=== PATIENT | male | born 1930 | race Caucasian/White ===

== ENCOUNTER 2019-01-29 09:25 | Observation (INO) ==
--- NOTE | 2019-01-24 15:08 | Anesthesiology Consultation ---
Date of Service January 24, 2019 Assessment & Plan (1) Encounter for pre-operative examination: Chart Review Chart Review: Pending: Refer to Additional Notes / Consult section (pending preop testing (labs, EKG, CXR)) and Patient seen in Pre Admission Testing Teaching & Discussion Pre-Anesthesia Teaching/Discussion Notes: Instructed NPO after midnight before surgery,except medications with 15 cc of water. Medication instructions provid ed according to the PAT guidelines. History Surgery Operation Date: 01/29/19 11:00 Proposed Procedures p Transurethral Resection Prostate - Shaun Washington MD Height/Weight Height: 5 ft 6.5 in Weight: 70 kg Allergies Allergy/AdvReac Type Severity Reaction Status Date / Time No Known Allergies Allergy Verified 01/23/19 09:07 Medications Home Medications Medication Instructions Recorded Confirmed Last Taken alprazolam [Xanax] 0.25 mg PO DAILY PRN 01/23/19 01/23/19 Unknown amlodipine [Norvasc] 2.5 mg PO QPM 01/23/19 01/23/19 Unknown citalopram 20 mg PO QPM 01/23/19 01/23/19 Unknown ibuprofen 400 mg PO DAILY PRN 01/23/19 01/23/19 Unknown levothyroxine 88 mcg PO QAM 01/23/19 01/23/19 Unknown mupirocin 1 appln TOP UD PRN 01/23/19 01/23/19 Unknown Past Medical History Medical History Nocturia Hypothyroidism BPH (benign prostatic hyperplasia) Arthritis Anxiety Chronic kidney disease stage III Hearing deficit Hypertension Skin cancer head Exercise / Class Metabolic Activity III < 4 Walking/Shop/Light housework Past Family History Family History Other No significant family history Past Surgical History Surgical History History of arthroscopy LEFT KNEE History of cholecystectomy History of colonoscopy History of cystoscopy History of herniorrhaphy INGUINAL Past Anesthesia History No Hx of Anesthesia Complications and No Family Hx of Anesthesia Complications History of PONV No Hx of PONV Social History Smoking Status: Never smoker Do You Dip or Chew Tobacco: No Hx Alcohol Use: No Hx Substance Use: No substance use type: does not use Review of Systems Patient denies chest pain, shortness of breath, cough, wheezing, palpitations. Physical Exam Vital Signs VITALS BP 138/88 P 57 TEMP 97.9 SP02 99%ra RESP 16 PHYSICAL Full neck and c-spine range of motion. Full TMJ range of motion. TMD 3 finger breaths Mallampati Score 3 Dentition: intact, upper front/sides caps Lungs: clear throughout to auscultation Cardiac: regular rate and rhythm, no murmurs noted Spine: normal Carotid arteries: negative bruit Extremities: no edema
--- NOTE | 2019-01-24 16:01 | XRay Report ---
XR chest Pre-admission PA/Lat CLINICAL HISTORY: 88 years-old Male presenting with preoperative assessment. TECHNIQUE: PA and lateral views of the chest were obtained. COMPARISON: None. FINDINGS: Atherosclerosis of the aortic arch. Cardiac silhouette normal in size. Eventration of the right hemid iaphragm. Lungs mildly hyperinflated. No focal opacity. No pleural effusion or pneumothorax. Degenera tive changes of the thoracic spine. Advanced degenerative changes of the left glenohumeral joint. Upp er abdomen normal. IMPRESSION: 1. Mild hyperinflation. Correlate for possible underlying mild chronic obstructive lung disease th gh this could be due to inspiratory effort. Otherwise no acute cardiopulmonary disease. Electronically signed by: Liborio Owusu M.D. 01/24/2019 4:00 PM
[2019-01-24 16:03] LABS: Basophils # (auto) 0.03 K/uL (0-0.2); Basophils % (auto) 0.4 %; Eosinophils % (auto) 1.2 %; Hematocrit (blood only) 43.2 % (42-52); Hemoglobin 14.5 g/dL (14.0-18.0); Immature Granulocytes # (auto) 0.01 K/uL (0.00-0.02); Immature Granulocytes % (auto) 0.1 %; Lymphocytes # (auto) 2.79 K/uL (1.2-3.4); Lymphocytes % (auto) 34.7 %; Mean Corpuscular Hgb Conc 33.6 g/dL (32-36); Mean Corpuscular Volume 92.3 fL (80-100); Mean Platelet Volume 9.1 fL (7.4-10.4); Monocytes # (auto) 1.22 K/uL (0.11-0.59); Monocytes % (auto) 15.2 %; Neutrophils # (auto) 3.88 K/uL (1.4-6.5); Neutrophils % (auto) 48.4 %; Platelet Count 251 K/uL (130-400); RDW Coefficient of Variation 14.4 % (11.5-14.5); RDW Standard Deviation 48.7 fL (36.4-46.3); Red Blood Count 4.68 M/uL (4.7-6.1); White Blood Count 8.03 K/uL (4.8-10.8)
[2019-01-24 16:13] LABS: BUN Creatinine Ratio 14.6 (10-20); Calcium 8.9 mg/dl (8.5-10.1); Creatinine Clr Calc Pharmacy 35.5 ml/min; Est GFR (African American) 55.4; Est GFR (Non-African American) 47.8
[~2019-01-29 09:25] MED LIST: CIPROFLOXACIN 400 MG/200 ML BAG IV SCH; LR 15ML/HR IV SCH
[2019-01-29] MEDS ORDERED: ATROPINE SULFATE 0.1 MG/ML 10ML SYR IV PRN (09:54)
[2019-01-29] MEDS ORDERED: ONDANSETRON INJ 2 MG/ML 2 ML VIAL IV PRN ×2 (09:54→13:45)
[2019-01-29] MEDS ORDERED: ePHEDrine sulfate 50 MG/ML AMP IV PRN (09:54)
[2019-01-29] MEDS ORDERED: fentaNYL citrate 100 MCG/2 ML VIAL IV PRN (09:54)
[2019-01-29] MEDS ORDERED: HYDROmorphone INJ 1 MG/ML SYRINGE IV PRN (09:54)
[2019-01-29] MEDS ORDERED: fentaNYL citrate 100 MCG/2 ML VIAL ONE (10:26)
[2019-01-29] MEDS ORDERED: LIDOCAINE HCL 2% 2 ML VIAL/AMP(20MG/ML) INFIL ONE (10:26)
[2019-01-29] MEDS ORDERED: ONDANSETRON INJ 2 MG/ML 2 ML VIAL ONE (10:26)
[2019-01-29] MEDS ORDERED: PROPOFOL IV EMULSION 10 MG/ML 20 ML VIAL IV ONE (10:26)
--- NOTE | 2019-01-29 11:36 | History & Physical Bridge Note ---
Date of Service January 29, 2019 History & Physical Bridge Note I have examined the patient, reviewed the History & Physical and in the interval since the performance of the History & Physical I have noted the following changes of clinical significance: no changes noted
[2019-01-29] MEDS ORDERED: BELLADONNA/OPIUM SUPP 60 MG SUPP PR ONE (12:10)
[2019-01-29] MEDS ORDERED: BELLADONNA/OPIUM SUPP 60 MG SUPP PR PRN (12:11)
--- NOTE | 2019-01-29 12:35 | Operative Report ---
PG Post Operative Report Pre & Post Diagnosis Operation Date: 01/29/19 11:30 Pre-Op Diagnosis: Benign Prostatic Hyperplasia w/Urinary Obstruction Post-Op Diagnosis: Benign Prostatic Hyperplasia w/Urinary Obstruction I identified the patient and participated in the time-out.: Yes Procedure Operation Date: 01/29/19 11:30 Actual Procedures p Transurethral Resection Prostate(Not Applicable) - Shaun Washington MD Surgeon Alexys Washington MD [employer] Cattle Farmer none Estimated Blood Loss 5 Findings Consistent with Post-Op Diagnosis Specimens none Description of Procedure The patient was identified in the preopertive holding area, appropriate informed consents were reviewed and completed and the patient was transferred to the operative suite. Upon arrival, appropriate antibiotics and anesthesia were administered and the patient was placed in dorsal lithotomy position and prepped and draped in sterile fashion. To begin the case I attempted to pass a 27 [place] resectoscope with visual obturator, however, his weight is would not accommodate the scope. I subsequently performed a meatal dilation to 28 [place] and then passed the scope without incident. Inspection revealed no evidence of urethral stricture disease, his prostate was notably enlarged with a high bladder neck and lateral lobe hypertrophy. He has a very heavily trabecular the bladder with several small diverticuli. There are no tumors within the bladder. Following my inspection I exchanged the visual breaker operator for resecting element using a button electrode. I incised the bladder neck at 5 and 7:00 with care to avoid encroachment upon the ureteral orifices. This drastically open the bladder neck and dropped the bladder neck down. I resected the tissue between these 2 incisions flattening the bladder neck. I then proceeded to resect the left lateral lobe as well as the right lateral lobe and a small amount of anterior tissue. I was cautious around the apex preserving tissue adjacent to the verumontanum. I obtained meticulous hemostasis and concluded the case. I left his bladder full and withdrew the scope. With gentle suprapubic pressure he generated a very strong urinary stream. Placed a 22 [place] Chávez catheter without difficulty and concluded the case. He was extubated and taken to the PACU in stable condition. There were no complications. I attest to the content of the Intraoperative Record and any orders documented therein. Any exceptions are noted below.
--- NOTE | 2019-01-29 13:10 | Anesthesiology Progress Note ---
Date of Service January 29, 2019 Anesthesia Post Procedure Vital Signs Vital Signs: Temp Pulse Pulse Resp BP Pulse Ox 01/29/19 13:05 36.4 C L 73 18 139/78 96 01/29/19 12:55 74 18 127/78 100 01/29/19 12:45 86 20 132/77 100 01/29/19 12:35 36.3 C L 86 16 146/77 H 99 01/29/19 10:05 37.1 C 61 18 145/95 H 99 Transfer of Care Handoff Completed per policy Notes Mental Status: alert / awake / arousable and participated in evaluation Patient Amnestic to Procedure: Yes Nausea / Vomiting: adequately controlled Pain: adequately controlled Airway Patency, RR, SpO2: stable & adequate BP & HR: stable & adequate Hydration State: stable & adequate Anesthetic Complications: no major complications apparent and Pt Satisfied with anesthetic care
[2019-01-29] MEDS ORDERED: LACTATED RINGER'S 1,000 ML IV SCH (13:45)
[2019-01-29] MEDS ORDERED: ALPRAZolam 0.25 MG TABLET PO PRN (13:45)
[2019-01-29] MEDS ORDERED: ACETAMINOPHEN W/CODEINE #3 1 TAB PO PRN ×2 (13:45)
[2019-01-29] MEDS ORDERED: AMLODIPINE BESYLATE 5 MG TAB PO SCH (21:00)
[2019-01-29] MEDS ORDERED: CITALOPRAM 20 MG TAB PO SCH (21:00)
[2019-01-29] MEDS: CIPROFLOXACIN 500 MG TAB PO SCH (21:17)
[2019-01-29] MEDS: ACETAMINOPHEN 325 MG TAB PO PRN (21:22)
[2019-01-30] MEDS ORDERED: Nursing to Pharmacy Communication ONE (00:35)
[2019-01-30 05:21] LABS: Basophils # (auto) 0.05 K/uL (0-0.2); Basophils % (auto) 0.6 %; Eosinophils # (auto) 0.13 K/uL (0-0.5); Eosinophils % (auto) 1.6 %; Hemoglobin 13.3 g/dL (14.0-18.0); Lymphocytes # (auto) 2.35 K/uL (1.2-3.4); Lymphocytes % (auto) 29.8 %; Mean Corpuscular Hemoglobin 30.9 pg (25-34); Mean Corpuscular Hgb Conc 34.1 g/dL (32-36); Mean Corpuscular Volume 90.5 fL (80-100); Mean Platelet Volume 8.6 fL (7.4-10.4); Monocytes # (auto) 1.08 K/uL (0.11-0.59); Monocytes % (auto) 13.7 %; Neutrophils # (auto) 4.28 K/uL (1.4-6.5); Neutrophils % (auto) 54.3 %; Platelet Count 215 K/uL (130-400); RDW Coefficient of Variation 13.7 % (11.5-14.5); RDW Standard Deviation 46.2 fL (36.4-46.3); Red Blood Count 4.31 M/uL (4.7-6.1); White Blood Count 7.89 K/uL (4.8-10.8)
[2019-01-30 06:07] LABS: BUN Creatinine Ratio 13.9 (10-20); Calcium 8.7 mg/dl (8.5-10.1); Creatinine Clr Calc Pharmacy 32.9 ml/min; Est GFR (African American) 51.6; Est GFR (Non-African American) 44.5; Potassium 4.5 mmol/L (3.5-5.1)
--- NOTE | 2019-01-30 07:59 | Urology Progress Note ---
Date of Service January 30, 2019 Assessment & Plan (1) BPH (benign prostatic hyperplasia): Postop day #1 status post TURP Voiding trial this morning Plan for discharge home later today Subjective Did very well overnightno issues urine clear Physical Exam Physical Exam: Clear urine, comfortable appearing, no apparent distress, AF VSS Results & Data Vital Signs (Past 12 Hours) Vital Signs Temp Pulse Pulse Resp BP Pulse Ox 01/30/19 07:35 36.3 C L 64 15 152/80 H 95 01/30/19 02:45 36.4 C L 62 16 123/72 93 01/29/19 23:30 36.8 C 74 16 141/85 H 94 01/29/19 20:13 36.4 C L 65 16 145/83 H 96 PG Care Time/CCT Total # of Minutes Spent Total Time Spent with Patient: Total time spent is greater than 50% in coordination of care (as documented) at patient's floor/unit and/or counseling patient:
[2019-01-30] MEDS: CIPROFLOXACIN 500 MG TAB PO SCH (08:26)
[2019-01-30] MEDS ORDERED: LEVOTHYROXINE SODIUM 88 MCG TABLET PO SCH (09:00)
[2019-01-30] MEDS: ACETAMINOPHEN 325 MG TAB PO PRN (09:45)
--- NOTE | 2019-01-30 10:35 | Urology Progress Note ---
Date of Service January 30, 2019 Assessment & Plan (1) BPH (benign prostatic hyperplasia): Postop day #1 status post TURP encinas d/c'd - awaiting spontaneous void. Offered hat for toilet for better aim, as he was having difficulty maneuvering urinal. Plan for discharge today. If pt unable to have good spontaneous void prior to his family member's arrival, will bladder scan and contact our office prior to discharge with results. Pt agreeable to this plan of care. Subjective [place] d/c'd per order around 9:3OAM PT sitting up at side of bed in street clothes. Denies any pain or discomfort. He has voided small amounts, concerned about not being able to void prior to 11am when his ride arrives Review of Systems Review of Systems: All systems reviewed & are unremarkable except as noted in HPI & below Physical Exam Physical Exam: A&Ox3 RRR Abd soft, nontender Results & Data Vital Signs (Past 12 Hours) Vital Signs Temp Pulse Pulse Resp BP Pulse Ox 01/30/19 07:35 36.3 C L 64 15 152/80 H 95 01/30/19 02:45 36.4 C L 62 16 123/72 93 01/29/19 23:30 36.8 C 74 16 141/85 H 94 PG Care Time/CCT Total # of Minutes Spent Total Time Spent with Patient: Total time spent is greater than 50% in coordination of care (as documented) at patient's floor/unit and/or counseling patient:
--- NOTE | 2019-01-30 11:55 | Discharge Summary ---
Date of Service January 30, 2019 Admission HPI Per Admitting Provider BPH with LUTS See HPI Principal Diagnosis BPH with LUTS Discharge Exam A&Ox3 RRR abd soft nontender Discharge Data Allergies Allergy/AdvReac Type Severity Reaction Status Date / Time No Known Allergies Allergy Verified 01/29/19 09:58 Procedures Performed Operation Date: 01/29/19 11:30 Actual Procedures p Transurethral Resection Prostate(Not Applicable) - Shaun Washington MD Hospital Course (1) BPH (benign prostatic hyperplasia): Pt admitted after scheduled TURP with Dr. Washington. Pt tolerated procedure well, no complications. Uneventful night, passed voiding trial in AM. Total Time Total Time Spent Total Time Spent (In Minutes): 10 Total Time Includes: Examination of the Patient, Discharge Planning, Medication Reconciliation and Communication With Other Providers Discharge Plan Discharge Items Patient Disposition: Home - Self-Care Reason For Visit: Benign Prostatic Hyperplasia w/Urinary Obstruction Discharge Diagnosis: BPH Activity: Resume your previous activity Lifting: Gradually increase as tolerated Bathing: No limitations Sexual Activity: When tolerated Exercise/Sports: Gradually increase as tolerated Driving/Machine Use: No limitations Non-emergency contact: Urologist Call non-emergency contact if: you have any medication questions, your symptoms worsen, your pain is concerning for you, you have a fever and your temperature is above 101.5 Follow-up/Referrals: Moshe Gardner DO [Primary Care Provider] - Diet: Regular Addtl Attending Provider Instructions: Please take all medications as prescribed and keep follow-ups as scheduled. Please call our office at [phone] with any questions, concerns or need to reschedule appointments for any reason. We are happy to assist you. While catheter is in place, please wash with warm soapy water and a fresh washcloth twice a day with mild bar soap (Dove, Dial, etc.). Your nursing visit appointment to have your catheter removed should already be made, if you have any question regarding this, please call our office. Complete antibiotics as prescribed, if indicated. It is okay to take AZO (available over the counter) as needed for a few days to relieve burning with urination. This may cause your urine or feces to turn an orangish-color. This is expected. The only exception is if you have been prescribed Pyridium (phenazopyridine), this is the same medication and should not take AZO be taken in addition to prescription version. Please do not drive, drink alcohol or operate machinery while taking prescription pain medication. We recommend continuing a stool softener (i.e. Colace) to prevent constipation/straining for at least two weeks after your procedure. Some blood is to be expected in your urine as you heal, you may even see recurrences of blood in your urine for up to 4-6 months after your procedure. Drink plenty of fluids, avoid sexual or strenuous exercise and do not lift >25 pounds until your follow-up. Call [facility] at [phone] promptly if you experience: Fever of 101F or greater Pain thats not controlled with medicine Trouble urinating or inability to urinate Dark, bloody urine for more than 12 hours Pending Studies at Discharge: No Stand-Alone Forms: My [facility] SUPR, Smoking Cessation Medications and DC Order Prescriptions: Continued ciprofloxacin HCl 500 mg tablet 500 mg PO BID 7 Days Qty: 14 RF: 0 amlodipine [Norvasc] 2.5 mg tablet 2.5 mg PO QPM RF: 0 levothyroxine 88 mcg tablet 88 mcg PO QAM RF: 0 alprazolam [Xanax] 0.25 mg tablet 0.25 mg PO DAILY PRN (Reason: Sleep) RF: 0 citalopram [Celexa] 20 mg tablet 20 mg PO QPM RF: 0 mupirocin 2 % ointment 1 appln TOP UD PRN (Reason: APPLIES TO HEAD NEEDED) RF: 0 ibuprofen 200 mg Tablet 400 mg PO DAILY PRN (Reason: Pain) RF: 0 Discharge Orders: Discharge Order (Routine); Ordered 01/30/19 Ordered By: Shaun Washington Admission Data Admit Date/Time: 01/29/19 12:47 Attending Provider: Shaun Washington Admit Provider: Shaun Washington Primary Care Provider: Moshe Gardner Other Interventions: Discharge Summary Assessment (RN) Last Done: 01/30/19 11:15 DC Date/Time DO NOT enter until pt leaves facility: 01/30/19 11:42
== END 2019-01-30 11:42 | disposition home or self-care (01) ==
LOC: ASU 09:25 → 3W 09:25